=== PATIENT | male | born 1960 | race African-American/Black ===

== ENCOUNTER 2018-12-15 02:37 | Emergency (ER) | payer BC ==
[~2018-12-15] VITALS: Ht 182.9 cm; Wt 123.0 kg
[2018-12-15 02:40] VITALS: BP 150/97
== END 2018-12-15 03:34 | disposition home or self-care (01) ==
LOC: ER 02:37
DX: R45.1 Restlessness and agitation (principal); F91.8 Other conduct disorders; I10 Essential (primary) hypertension
CPT/HCPCS: 99281